=== PATIENT | female | born 1970 | race Two or more races ===

== ENCOUNTER 2023-08-26 13:50 | Emergency (ER) | payer OTHER ==
[2023-08-26 14:10] VITALS: BP 127/89; PULSE 64; RESP 16; TEMP 98.3; BMI 28.3
== END 2023-08-26 15:26 | disposition home or self-care (01) ==
LOC: FER 13:50
DX: R14.0 Abdominal distension (gaseous) (principal)
CPT/HCPCS: 74021-TC-FY; 99283-25

== ENCOUNTER → 2023-09-17 | Day surgery (SDC) | payer OTHER | END | disposition home or self-care (01) | LOC: FRADUS-SUR 11:17 | PROVIDERS: ATTEND Surgery | PROC: 0HBU3ZX Excision of Left Breast, Percutaneous Approach, Diagnostic (ICD-10-PCS; principal; 2023-09-17) | DX: N60.12 Diffuse cystic mastopathy of left breast (principal); N60.22 Fibroadenosis of left breast; N60.32 Fibrosclerosis of left breast; N60.82 Other benign mammary dysplasias of left breast; N63.24 Unspecified lump in the left breast, lower inner quadrant | CPT/HCPCS: 19085; 77065-TC; 88305-TC; A4648 ==